=== PATIENT | female | born 1960 | race Caucasian/White ===

== ENCOUNTER → 2020-01-30 | Outpatient (CLI) | payer BC | LOC: RAD 07:56 | DX: R10.13 Epigastric pain (principal) | CPT/HCPCS: Q9967 ==

== ENCOUNTER → 2021-12-29 | Outpatient (CLI) | payer BC | LOC: RAD 09:00 | DX: J32.0 Chronic maxillary sinusitis (principal) | CPT/HCPCS: Q9967 ==

== ENCOUNTER → 2022-02-11 | Outpatient (CLI) | payer BC | LOC: MAMMO 09:49 | DX: Z12.31 Encounter for screening mammogram for malignant neoplasm of breast (principal) ==

== ENCOUNTER → 2023-07-21 | Outpatient (CLI) | payer MEDICARE, BC | LOC: MAMMO 10:00 | DX: Z12.31 Encounter for screening mammogram for malignant neoplasm of breast (principal) ==